=== PATIENT | male | born 1990 | race Caucasian/White ===

== ENCOUNTER → 2021-02-24 15:16 | Outpatient (CLI) | payer OTHER, SELFPAY | PROVIDERS: Visit Provider Nurse Practitioner | DX: Z20.822 Contact with and (suspected) exposure to COVID-19 (principal); U07.1 COVID-19 | CPT/HCPCS: C9803; U0003; U0005 ==

== ENCOUNTER 2025-02-05 09:21 | Outpatient (CLI) | payer OTHER, SELFPAY ==
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
--- NOTE | 2025-02-05 09:29 | XR_ITS ---
FINAL REPORT CLINICAL HISTORY: OSTEOMYLITIS COMPARISON: None FINDINGS: Three views of the right foot show no evidence of acute displaced fracture or bone destruction. There is an open wound along the medial first MTP joint without periosteal reaction. Mild calcaneal spurring is noted. IMPRESSION: No radiographic features of osteomyelitis. Reviewed, Interpreted and Dictated by Eva Machado MD Transcribed by Ramya Vasquez Authenticated and [facility]
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
== END 2025-02-05 23:59 | disposition home or self-care (01) ==
PROVIDERS: PCP Family Medicine; Visit Provider Family Medicine
DX: E11.621 Type 2 diabetes mellitus with foot ulcer (principal); L97.509 Non-pressure chronic ulcer of other part of unspecified foot with unspecified severity; M86.9 Osteomyelitis, unspecified
CPT/HCPCS: 73630

== ENCOUNTER 2025-02-09 10:53 | Outpatient (CLI) | payer OTHER, SELFPAY ==
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
--- NOTE | 2025-02-09 | CA_ITS ---
FINAL REPORT CLINICAL HISTORY: DM,PT HAS DIABETIC FOOT ULCER FINDINGS: BILATERAL LOWER EXTREMITY DUPLEX DOPPLER Color Doppler and duplex Doppler of the bilateral lower extremity was performed. Spectral analysis was also performed. Velocities were measured at multiple levels. All velocities are in centimeters per second. RIGHT BASKET GRADER: 81 Prof: 47 SFA Prox: 111 SFA Mid: 110 SFA Distal: 102 Pop: 89 TRAIN MASTER Prox: 107 TRAIN MASTER Mid: 88 TRAIN MASTER Dist: 102 Per Prox: 104 SERJIO: 71 Waveforms are monophasic in the proximal femoral, peroneal, and posterior tibial. No significant plaque seen. No evidence of vessel occlusion. LEFT BASKET GRADER: 88 Prof: 63 SFA Prox: 104 SFA Mid: 112 SFA Distal: 89 Pop: 88 TRAIN MASTER Prox: 80 TRAIN MASTER Mid: 66 TRAIN MASTER Dist: 86 Per Prox: 100 SERJIO: 60 Waveforms are monophasic in the posterior tibial. No evidence of vessel occlusion. No visualized plaque. IMPRESSION: No levels of stenosis or occlusion are identified. Reviewed, Interpreted and Dictated by Karime Landrum MD Transcribed by Ramya Vasquez Authenticated and [facility]
== END 2025-02-09 23:59 | disposition home or self-care (01) ==
LOC: RT 11:00
PROVIDERS: PCP Family Medicine; Visit Provider Family Medicine
DX: E11.621 Type 2 diabetes mellitus with foot ulcer (principal); L97.509 Non-pressure chronic ulcer of other part of unspecified foot with unspecified severity
CPT/HCPCS: 93925

== ENCOUNTER 2025-03-13 14:00 | Outpatient (RCR) | payer OTHER, SELFPAY ==
--- NOTE | 2025-02-20 15:04 | HMH.PTOPWND ---
Rehab Wound Evaluation Rehab OP Wound Evaluation Start: 02/20/25 14:44 Freq: Status: Active Protocol: Document 02/20/25 14:45 PHOANGELES (Rec: 02/20/25 15:04 PHORSAM [id number]) E-signed By Kwame Khoury, PT Subjective/History History History This is the initial PT wound care eval for Jay Lira,34 yowm who presents with 3 separate R foot DFUs that have been present for ~2 mos. He reports, I got some blisters that showed up and popped. I don't even know how they happened. He reports decreased sensation in B feet from the ankle distally. He reports no hx of diabetes, but his A1c was 12.2% per the information included with the provider's referral. He reports other significant medical history. Subjective Subjective He reports no c/o pain at this time and no pain with wound care. R foot wounds with significant hyperkeratotic ring around their borders. Wound Eval Wound Right Posterior Toe - 5th Digit Wound Type Diabetic Foot Ulcer Is This a Chronic Yes Wound Wound Length (cm) 1.6 Wound Width (cm) 1.9 Wound Depth (cm) 0.4 Wound Bed Appearance Beefy Red,Yellow Percentage 90 Granulated (%) Percentage of Slough 10 (%) Wound Margins Well Defined Description Surrounding Tissue Bright Red Appearance Drainage Description Purulent Drainage Amount Small Primary Dressing Silver Dressing Comment opticell Ag Wound Secondary Bandaid Dressing Type Wound Debridement Sharps,Gauze,Mechanical Method Wound Debridement Minimal Amount of Tissue Removed Dressing Change Tolerated Well Patient Tolerance Right Posterior Great Toe Wound Type Diabetic Foot Ulcer Is This a Chronic Yes Wound Wound Length (cm) 2.1 Wound Width (cm) 2.6 Wound Depth (cm) 0.7 Wound Bed Appearance Beefy Red,Yellow Percentage 90 Granulated (%) Percentage of Slough 10 (%) Wound Margins Well Defined Description Surrounding Tissue Bright Red Appearance Drainage Description Purulent Drainage Amount Small Wound Topical Saline Irrigant Solution/Irrigant Primary Dressing Silver Dressing Comment opticell Ag Wound Secondary Composite Dressing Type Comment optifoam gentle border Wound Debridement Sharps,Gauze,Mechanical Method Wound Debridement Minimal Amount of Tissue Removed Dressing Change Tolerated Well Patient Tolerance Right Lateral Foot Wound Type Diabetic Foot Ulcer Is This a Chronic Yes Wound Wound Length (cm) 1.2 Wound Width (cm) 2.1 Wound Depth (cm) 0.1 Wound Bed Appearance Beefy Red,Yellow Percentage 95 Granulated (%) Percentage of Slough 5 (%) Wound Margins Well Defined Description Surrounding Tissue Bright Red Appearance Drainage Description Serosanguineous Drainage Amount Scant Wound Topical Saline Irrigant Solution/Irrigant Primary Dressing Bandaid Wound Debridement Sharps,Gauze,Mechanical Method Wound Debridement Minimal Amount of Tissue Removed Dressing Change Tolerated Well Patient Tolerance [place] Wound Assessment Tool Assessment Wound size 2=Length x Width 4--<16 sq cm Wound depth 3=Full thickness skin loss involving damage or necrosis of Wound edges 5=Well-defined, fibrotic, scarred or hyperkeratotic Wound undermining 2=Undermining <2 cm in any area Necrotic tissue type 3=Loosely adherent yellow slough Necrotic tissue 2=<25% of wound bed covered amount Exudate type 5=Purulent: thin or thick, opaque, montes/yellow, withour without odor Exudate amount 3=Small Skin color 2=Bright red &/or blanches to touch surrounding wound Peripheral tissue 1=No swelling or edema edema Peripheral tissue 1=None present induration Granulation tissue 2=Bright, beefy red;75% to 100% of wound filled &/or tissue overgrowth Epithelialization 5= < 25% wound covered Wound assessment 36 total score Wound Problems/Impairments Impairments Problems/ Impaired Dressing,Wound Care Needs,Impaired Self Care/ Impairmments Self Management Prognosis Rehab Potential Good Comment Skilled therapy services are indicated to reduce overall wound surface area and improve healing of all wounds in order to aid pt improvement in QOL. Clinical Impression Consistent with Yes Diagnosis Consistent with also Additional details: E08.621: Diabetic foot ulcer Wound Patient Goals Wound Patient Goals Wound Short Term In 4 wks pt will: Patient Goals 1) Decrease total wound surface area by 25% Wound Manager Payroll In 8 wks pt will: Patient Goals 1) Decrease total wound surface area by 75% 2) Be independent with home dressing changes by pt or caregiver. Outpatient Therapy Plan of Care Treatment Plan May Include ADL/Self Care Yes Education Ultrasound/ Yes Phonophoresis Orthotics/Bracing/ Yes Splinting Wound Care Yes Eval/Re-Eval Yes Frequency Times per week 2 Duration Number of Weeks 8 Addendums This patient is a No candidate for social or vocational rehab ? Patient/Guardian Yes verbally acknowledges understanding of treatment program and consents to further treatment? Patient/Guardian Yes verbally acknowledges understanding of diagnosis, prognosis and goals for treatment? Eval Complexity PT Charges 14052 - High Complexity PHYSICIAN CERTIFICATION: I certify the specified therapy services for Jay Lira are required, authorized, and reviewed every 30 days.
== END 2025-03-13 23:59 | disposition home or self-care (01) ==
LOC: PT 14:00
PROVIDERS: Visit Provider Family Medicine
DX: L98.499 Non-pressure chronic ulcer of skin of other sites with unspecified severity (principal)
CPT/HCPCS: 97163; 97597

== ENCOUNTER 2025-04-14 09:00 | Outpatient (RCR) | payer OTHER, SELFPAY ==
--- NOTE | 2025-03-23 10:53 | HMH.RHREAS ---
Rehab Reassessment Rehab OP Re-assessment Start: 03/23/25 10:34 Freq: Status: Active Protocol: Document 03/23/25 10:38 NOMI (Rec: 03/23/25 10:52 PHORSAM [id number]) E-signed By Kwame Khoury, PT Tres Wound Assessment Tool Assessment Wound size 2=Length x Width 4--<16 sq cm Wound depth 3=Full thickness skin loss involving damage or necrosis of Wound edges 5=Well-defined, fibrotic, scarred or hyperkeratotic Wound undermining 2=Undermining <2 cm in any area Necrotic tissue type 1=Non visible Necrotic tissue 1=None visible amount Exudate type 3=Serosanguineous: thin, watery, pale red/pink Exudate amount 3=Small Skin color 1=[place] or normal for ethnic group surrounding wound Peripheral tissue 1=No swelling or edema edema Peripheral tissue 1=None present induration Granulation tissue 2=Bright, beefy red;75% to 100% of wound filled &/or tissue overgrowth Epithelialization 5= < 25% wound covered Wound assessment 30 total score Rehab Re-assessment Subjective Subjective Pt reports no c/o pain at this time as he continues to have numbness due to neuropathy. He does report he is trying to stay off my feet more and not put as much pressure on his wounds. He also has been better about keeping his wounds covered with a band-aid at all times . Objective Objective Notes R plantar 1st MT wound: L= 1.8 cm, W= 1.9 cm, D= 0.4 cm 99% healthy granulation tissue, hyperkeratotic rim remains. wound has healed 37% total surface area vs IE. R plantar 5th MT wound: L= 1.4 cm, W= 1.7 cm, D= 0.5 cm 99% healthy granulation tissue, hyperkeratotic rim remains. wound has healed 22% total surface area vs IE. Assessment Progress Assessment Progressing as Expected Assessment Notes Pt has been present for 5 treatment sessions since his initial evaluation was performed. He has shown significant healing based on overall total wound surface area changes and improvement in healthy tissue quality in his wound beds. Skilled therapy remains indicated to continue to aid improvement in overall wound healthy, decrease wound surface area, and perform debridement of hyperkeratotic rim surrounding his DFU' s. Wound Patient Goals Wound Short Term In 4 wks pt will: (Remains Active) Patient Goals 1) Decrease total wound surface area by 25% Wound Residential In 8 wks pt will: (Remains Active) Patient Goals 1) Decrease total wound surface area by 75% 2) Be independent with home dressing changes by pt or caregiver. Plan Plan Continued pt treatment may include any or all of the following interventions in order to improve functional outcomes and aid pt improvement in QOL: Frequency of Therapy 1 x/wk Duration of Therapy 8 wks Therapeutic Yes Activities to Return to Previous Functional/Work Level ADL/Self Care Yes Education Ultrasound/ Yes Phonophoresis Wound Care Yes Eval/Re-Eval Yes Time and Billing Re-Eval Time 16 Re-Eval Billing 0 Units Charge for PT No reassessment? PHYSICIAN CERTIFICATION: I certify the specified therapy services for Jay Lira are required, authorized, and reviewed every 30 days.
== END 2025-04-14 23:59 | disposition home or self-care (01) ==
LOC: PT 09:00
PROVIDERS: Visit Provider Family Medicine
DX: L98.499 Non-pressure chronic ulcer of skin of other sites with unspecified severity (principal); G62.9 Polyneuropathy, unspecified; L03.90 Cellulitis, unspecified
CPT/HCPCS: 97597

== ENCOUNTER 2025-05-19 09:00 | Outpatient (RCR) | payer OTHER, SELFPAY ==
--- NOTE | 2025-04-21 14:30 | HMH.RHREAS ---
Rehab Reassessment Rehab OP Re-assessment Start: 04/21/25 10:39 Freq: Status: Active Protocol: Document 04/21/25 14:04 PHOHusamSAM (Rec: 04/21/25 14:30 PHORNE [id number]) E-signed By Kwame Khoury PT Tres Wound Assessment Tool Assessment Wound size 1=Length x Width <4 sq cm Wound depth 3=Full thickness skin loss involving damage or necrosis of Wound edges 5=Well-defined, fibrotic, scarred or hyperkeratotic Wound undermining 2=Undermining <2 cm in any area Necrotic tissue type 1=Non visible Necrotic tissue 1=None visible amount Exudate type 3=Serosanguineous: thin, watery, pale red/pink Exudate amount 3=Small Skin color 1=[place] or normal for ethnic group surrounding wound Peripheral tissue 1=No swelling or edema edema Peripheral tissue 1=None present induration Granulation tissue 2=Bright, beefy red;75% to 100% of wound filled &/or tissue overgrowth Epithelialization 4=25% to < 50% wound covered Wound assessment 28 total score Rehab Re-assessment Subjective Subjective Pt continues to report no pain in B feet due to his considerable neuropathy. He has suffered new injuries to both feet ~2 weeks ago with greenberg due to standing on the floor heater grate. He was sent to see his PCP after he attended an appointment with the new injuries. Objective Objective Notes R foot plantar 1st MT wound: L= 1.4 cm, W= 1.5 cm, D= 0 .4 cm 100% granulation tissue in wound bed, but hyperkeratotic rim remains. Wound has healed by 17% of total wound surface area since IE. R foot plantar 5th MT wound: L- 1.2 cm, W= 1.5 cm, D= 0 .2 cm 100% granulation tissue in wound bed, but hyperkeratotic rim remains. Wound has healed by 41% of total wound surface area since IE. Assessment Progress Assessment Progressing as Expected Assessment Notes Pt has been present for 4 treatment visits since his last RA was performed. Pt has shown considerable healing of R foot wounds overall, but continues to need consistent sharp excisional debridement. Skilled therapy remains indicated to continue to aid improvement in overall wound healthy, decrease wound surface area, and perform debridement of hyperkeratotic rim surrounding his DFU's. Wound Patient Goals Wound Short Term In 4 wks pt will: (Remains Active) Patient Goals 1) Decrease total wound surface area by 25% Wound Retirement In 8 wks pt will: (Remains Active) Patient Goals 1) Decrease total wound surface area by 75% 2) Be independent with home dressing changes by pt or caregiver. Plan Plan Continued pt treatment may include any or all of the following interventions in order to improve functional outcomes and aid pt improvement in QOL: Frequency of Therapy 1 x/wk Duration of Therapy 4 wks ADL/Self Care Yes Education Ultrasound/ Yes Phonophoresis Wound Care Yes Eval/Re-Eval Yes Time and Billing Re-Eval Time 16 Re-Eval Billing 0 Units Charge for PT No reassessment? PHYSICIAN CERTIFICATION: I certify the specified therapy services for Jay Lira are required, authorized, and reviewed every 30 days.
--- NOTE | 2025-05-19 09:52 | HMH.RHREAS ---
Rehab Reassessment Rehab OP Re-assessment Start: 04/21/25 10:39 Freq: Status: Active Protocol: Document 05/19/25 09:45 NOMI (Rec: 05/19/25 09:52 PHORNE [id number]) E-signed By Kwame Khoury PT Tres Wound Assessment Tool Assessment Wound size 1=Length x Width <4 sq cm Wound depth 3=Full thickness skin loss involving damage or necrosis of Wound edges 5=Well-defined, fibrotic, scarred or hyperkeratotic Wound undermining 2=Undermining <2 cm in any area Necrotic tissue type 1=Non visible Necrotic tissue 1=None visible amount Exudate type 3=Serosanguineous: thin, watery, pale red/pink Exudate amount 2=Scant, wound moist but no observable exudate Skin color 1=[place] or normal for ethnic group surrounding wound Peripheral tissue 1=No swelling or edema edema Peripheral tissue 1=None present induration Granulation tissue 2=Bright, beefy red;75% to 100% of wound filled &/or tissue overgrowth Epithelialization 5= < 25% wound covered Wound assessment 28 total score Rehab Re-assessment Subjective Subjective Pt continues to have no c/o pain at this time. he reports blood sugar last night was 77 and this morning was 356. 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 Objective Objective Notes Wounds remain clean at the base with healthy granulation tissue noted, but continued hyperkeratotic rim is present and requires excisional debridement. Healing has slowed, possibly due to increased pressure with more weightbearing. Podiatry consult would be recommended to aid healing at this time. R plantar 1st MT wound: L= 1.8 cm, W= 2.0 cm, D= 0.5 cm . Total sound surface area healed by 34% since IE R plantar 5th MT wound: L= 1.4 cm, W= 1.6 cm, D= 0.4 cm . Total sound surface area healed by 11% since IE Assessment Assessment Notes Pt has been present for 2 treatment visits since his last RA was performed. Pt has much less healing noted of R foot wounds since last reassessment and continues to need consistent sharp excisional debridement. Skilled therapy remains indicated to continue to aid improvement in overall wound healthy, decrease wound surface area, and perform debridement of hyperkeratotic rim surrounding his DFU's. Wound Patient Goals Wound Short Term In 4 wks pt will: (Remains Active) Patient Goals 1) Decrease total wound surface area by 25% Wound Business Machine Operator In 8 wks pt will: (Remains Active) Patient Goals 1) Decrease total wound surface area by 75% 2) Be independent with home dressing changes by pt or caregiver. Plan Plan Continued pt treatment may include any or all of the following interventions in order to improve functional outcomes and aid pt improvement in QOL: Frequency of Therapy 1 x/wk Duration of Therapy 8 wks Therapeutic Exercise Yes Including Home Exercise Program Therapeutic Yes Activities to Return to Previous Functional/Work Level Wound Care Yes Eval/Re-Eval Yes Time and Billing Re-Eval Time 17 Re-Eval Billing 0 Units Charge for PT No reassessment? PHYSICIAN CERTIFICATION: I certify the specified therapy services for Jay Lira are required, authorized, and reviewed every 30 days.
== END 2025-05-19 23:59 | disposition home or self-care (01) ==
LOC: PT 09:00
PROVIDERS: Visit Provider Family Medicine
DX: L98.499 Non-pressure chronic ulcer of skin of other sites with unspecified severity (principal)
CPT/HCPCS: 97597